=== PATIENT | male | born 1990 | race Two or more races ===

== ENCOUNTER 2017-03-05 06:45 | Emergency (ER) | payer SELFPAY ==
[2017-03-05 06:50] VITALS: O2SAT 98
--- NOTE | 2017-03-05 07:04 | EDPHY ---
HPI/HX/ROS/PE/MDM Narrative: CHIEF COMPLAINT: "I have a sharp pain on my shoulder blade" HPI: The patient is a 26 y/o male arriving with his girlfriend complaining of left shoulder blade pain that began upon waking 3 days ago. He cannot identify a preceding event or trauma that caused his pain. He describes his pain as "burning and itching" and located just medial to the inferior aspect of his left shoulder blade. His pain is aggravated by turning his head downward to moving his left arm, but is not worse with breathing. Ibuprofen alleviates his symptoms for a short time. He looked up his symptoms online and is concerned he has a pinched nerve. He denies paresthesias, weakness, neck pain, back pain, fever, or dyspnea. He has never had these symptoms previously. He is otherwise healthy. REVIEW OF SYSTEMS: Aside from elements discussed in the HPI, a comprehensive 10-point review of systems was reviewed and is negative. PMH: Depression SOCIAL HISTORY: Works as a line assistant pastry chef. Girlfriend at bedside. PHYSICAL EXAM: General:Patient is alert, in no acute distress. ENT:Eyes are normal to inspection. ENT inspection normal. Neck: Normal inspection. Full range of motion. Respiratory:No respiratory distress. Breath sounds normal bilaterally. Cardiovascular: Regular rate and rhythm. Strong peripheral pulses. Normal cap refill. Abdomen:The abdomen is nontender to palpation. There are no peritoneal signs. Back: Mild tenderness just medial of inferior aspect left scapula, otherwise normal to inspection. No C/T/L tenderness to palpation. Skin: Normal color. No rash. Warm and dry. Extremities: Normal appearance. Full range of motion. Neuro: Oriented x3. Normal motor function. Normal sensory function. ED Course: This is a healthy 26 y/o male who presents with a 3-day history of atraumatic left scapular pain. He has no associated symptoms. His neuro exam is unremarkable. C-spine and chest x-rays are negative for acute process. I considered PE but the patient does not describe SOB or pleuritic chest pain, and he has no risk factors for this disease. My best guess is that this represents a mild cervical radiculopatthy with referred pain. Patient will be discharged home with standard muscle sprain care and follow up instructions. He' s been given prescriptions for cyclobenzaprine and prednisone. He understands that this diagnosis is provisional, and if worsens or fails to improve that he should return to the ED for further workup. - Data Points Imaging: I viewed and interpreted images myself General Initial Vital Signs: Initial Vital Signs Temperature (C) 36.5 C 03/05/17 06:49 Heart Rate 76 03/05/17 06:49 Respiratory Rate 16 03/05/17 06:49 Blood Pressure 126/80 H 03/05/17 06:49 O2 Sat (%) 98 03/05/17 06:49 O2 Delivery Mode Room Air Allergies/Adverse Reactions: No Known Allergies Allergy (Unverified 03/05/17 06:49) Home Medications: Medication Instructions Recorded Cyclobenzaprine [Flexeril 10 MG 10 mg PO TID PRN #15 tab 03/05/17 (*)] predniSONE 60 mg PO DAILY #9 tab 03/05/17 Departure - Departure Disposition: Home, Routine, Self-Care Clinical Impression: Thoracic sprain Condition: Good Instructions: Sprain (ED) Additional Instructions: 1. Take 600mg ibuprofen every 6-8 hours as needed for pain over the next few days. 2. Take cyclobenzaprine as prescribed when needed for muscle spasm. This medication can make you drowsy so you should not drive or operate machinery while using it. 3. Take prednisone as prescribed. 4. You can try applying ice or a heat pad for 20 minutes at a time to sore areas. 5. Okay to return to work today. 6. Follow up with your primary care provider for unimproved symptoms over the next week. 7. Return to the ED for severe pain, weakness or numbness in a limb, associated fever, or other worsening of condition. Referrals: Chetna Mayorga MD [Medical Doctor] - As per Instructions [facility],. [Clinic] - As per Instructions Stand Alone Forms: Work Excuse Prescriptions: Cyclobenzaprine [Flexeril 10 MG (*)] 10 mg PO TID PRN #15 tab PRN Reason: Spasms predniSONE 60 mg PO DAILY #9 tab Report Scribed for: Glenn Fischer Report Scribed by: Selena Brothers Date of Report: 03/05/17 Time of Report: 06:57 Physician Review and Approval Statement: Portions of this note were transcribed by an ED scribe. I personally performed the history, physical exam, and medical decision making; and confirm the accuracy of the information in the transcribed note.
[2017-03-05 08:23] VITALS: BP 110/75; PULSE 70; RESP 18; TEMP 98.1
== END 2017-03-05 08:28 | disposition home or self-care (01) ==
DX: S23.9XXA Sprain of unspecified parts of thorax, initial encounter (principal); X58.XXXA Exposure to other specified factors, initial encounter